=== PATIENT | male | born 1950 | race Caucasian/White ===

== ENCOUNTER 2018-10-26 14:02 | Emergency (ER) | payer BC, MEDICARE ==
[2018-10-26 14:57] VITALS: BP 145/92
--- NOTE | 2018-10-26 15:05 | UC ---
General HPI - HPI Summary HPI Summary: pt leaned on his R knee to do some work on Friday. Friday he noted some swelling and discomfort to the front of that knee. today, the front of his knee and front of the lower leg is red and warm. Also, his calf is swollen. + subjective fever, chills and malasie. he denies pain in the calf, cp and sob. he is on warfarin for afib and reports his INR's are usually between 2-3. - History of Current Complaint Chief Complaint: UCLowerExtremity Stated Complaint: RIGHT KNEE PAIN Time Seen by Provider: 10/26/18 14:55 Hx Obtained From: Patient Onset/Duration: Gradual Onset Timing: Constant Pain Intensity: 6 - Allergy/Home Medications Allergies/Adverse Reactions: Allergies Allergy/AdvReac Type Severity Reaction Status Date / Time No Known Allergies Allergy Verified 10/26/18 14:45 Home Medications: Home Medications Acetaminophen TAB* [Tylenol TAB*] 325 mg PO Q4H PRN 10/26/18 [History Confirmed 10/26/18] Warfarin Sodium 3 mg PO EVERY OTHER DAY 10/26/18 [History Confirmed 10/26/18] Warfarin TAB(*) [Coumadin TAB(*)] 2.5 mg PO EVERY OTHER DAY 10/26/18 [History Confirmed 10/26/18] PMH/Surg Hx/FS Hx/Imm Hx Cardiovascular History: Atrial Fibrillation - Surgical History Surgical History: Yes Surgery Procedure, Year, and Place: INGUINAL HERNIA - Family History Known Family History: Positive: Non-Contributory - Social History Lives: With Family Alcohol Use: Daily Substance Use Type: None Smoking Status (MU): Never Smoked Tobacco - Immunization History Hx Tetanus, Diphtheria Vaccination: Yes - <10 years Vaccination Up to Date: Yes Review of Systems All Other Systems Reviewed And Are Negative: Yes Constitutional: Positive: Fever, Chills, Other - malaise Skin: Positive: Rash - R anterior knee/RLE(anterior) Respiratory: Negative: Shortness Of Breath, Cough Cardiovascular: Negative: Palpitations, Chest Pain Musculoskeletal: Positive: Edema - RLE. Negative: Decreased ROM - RLE Neurological: Negative: Weakness, Paresthesia, Numbness Physical Exam Triage Information Reviewed: Yes Appearance: Well-Appearing Vital Signs: Initial Vital Signs Temp 99.6 F 10/26/18 14:48 Pulse 76 10/26/18 14:48 Resp 16 10/26/18 14:48 BP 145/92 10/26/18 14:48 Pulse Ox 99 10/26/18 14:48 Vital Signs Reviewed: Yes Eyes: Positive: Conjunctiva Clear Neck: Positive: Supple, Nontender, No Lymphadenopathy Respiratory: Positive: Lungs clear, Normal breath sounds, No respiratory distress Cardiovascular: Positive: Other: - irregularly irregular c/w his afib, rate 96 Abdomen Description: Positive: Nontender, No Organomegaly, Soft, Other: - No inguinal adenopathy. Negative: Distended, Guarding Bowel Sounds: Positive: Present Musculoskeletal: Positive: Other: - RLE: hip non tender. knee with tenderness over prepatellar bursa that is red, warm and swollen. Erythema extends to just above the anterior knee and to his R perez into the dorsal foot. his calf is about twice the size of the L calf but is non tender. the leg has full s/v/m function without joint pain. Neurological: Positive: Alert Psychological: Positive: Age Appropriate Behavior Skin Exam: Normal Course/Dx - Course Course Of Treatment: ER transfer advised to r/o DVT and to properly tx his septic burisitis and RLE cellulitis; however, pt refused. He is A&O x3. He is able to make decisions thus I must respect his wish to leave AMA. I advised of risk for worsening, disability and . Pt still refusing transfer. I advise he go to the ER at any time if he changes his mind. Pt states he will f/u with his pcp in am. I will still tx with an antibiotic, not treating would not be in the pt's best interest. - Differential Dx - Multi-Symptom Differential Diagnoses: Other - no concern for septic joint. exam c/w prepatellar septic bursitis, RLE cellulitis and DVT still possible as well despite being on warfarin. - Diagnoses Provider Diagnosis: Septic prepatellar bursitis of right knee, Cellulitis of right lower leg Discharge - Sign-Out/Discharge Documenting (check all that apply): Patient Departure All imaging exams completed and their final reports reviewed: No Studies - Discharge Plan Condition: Stable Disposition: AGAINST MEDICAL ADVICE Prescriptions: Cephalexin CAP* [Keflex CAP*] 500 mg PO TID 10 Days #30 cap Patient Education Materials: Cellulitis (DC), Knee Bursitis (ED) Referrals: Malcolm Min MD [Primary Care Provider] - 1 Day Additional Instructions: WE ARE NOT ABLE TO EXCLUDE A DVT IN RIGHT LEG(BLOOD CLOT) GO TO THE ER AT ANY TIME IF YOU CHANGE YOUR MIND - Billing Disposition and Condition Condition: STABLE Disposition: Against Medical Advice
== END 2018-10-26 15:46 | disposition left against medical advice (07) ==
LOC: UCCORT 14:02
DX: M70.41 Prepatellar bursitis, right knee (principal); Y93.89 Activity, other specified; M00.9 Pyogenic arthritis, unspecified; Z53.20 Procedure and treatment not carried out because of patient's decision for unspecified reasons; L03.115 Cellulitis of right lower limb; I48.2 Chronic atrial fibrillation; Z79.01 Long term (current) use of anticoagulants
CPT/HCPCS: 99212; G0463